=== PATIENT | male | born 1980 | race Caucasian/White ===

== ENCOUNTER 2018-09-10 00:40 | Emergency (ER) | payer SELFPAY ==
[~2018-09-10] VITALS: Ht 167.6 cm; Wt 65.8 kg
[2018-09-10 00:54] VITALS: BP 122/78
--- NOTE | 2018-09-10 00:56 | NUR ---
PT AMBULATED TO LOBBY WITH VSS.
--- NOTE | 2018-09-10 03:07 | NUR ---
PT BIB SELF C/O RIGHT HAND PAIN. PT STATES THAT HE WOKE UP TO HIS HAND BEING SWOLLEN AND RED THIS MORNING. DENIES TRAUMA OR INJURY. 7/10 BURNING PAIN AT THIS TIME. --MODERATE SWELLING AND REDNESS NOTED, NO DISCHARGE OR VISUAL DEFORMITIES, ACTIVE ROM, RADIAL PULSES +3 EQUAL BL. CAP REFIL <3. --DENIES N/V/D; SKIN IS PINK/WARM/DRY; AAOX4 WITH EVEN AND STEADY GAIT; LUNGS CLEAR BL; HR EVEN AND REGULAR; PT DENIES ANY FEVER, CP, SOB, OR COUGH AT THIS TIME; VSS; PATIENT POSITIONED FOR COMFORT; HOB ELEVATED; BEDRAILS UP X1; BED DOWN. ER MD MADE AWARE OF PT STATUS. --PT STATES HE WAS LIVING IN A TRAILER W/FRIENDS, GOT KICKED OUT TODAY. PT STATES HE WOULD LIKE TO GO TO A RESIDENTIAL. PMH: DENIES RX: DENIES
[2018-09-10] MEDS ORDERED: CLINDAMYCIN 600 MG/4 ML VIAL IM ONE (04:15)
[2018-09-10] MEDS ORDERED: KETOROLAC 60 MG/2 ML VIAL IM ONE (04:15)
--- NOTE | 2018-09-10 04:59 | NUR ---
Patient discharged with v/s stable. Written and verbal after care instructions given and explained. Patient alert, oriented and verbalized understanding of instructions. Ambulatory with steady gait. All questions addressed prior to discharge. ID band removed. Patient advised to follow up with PMD. Rx of Motrin, and Bactrim given. Patient educated on indication of medication including possible reaction and side effects. Opportunity to ask questions provided and answered. Pt left with wheather appropriate clothing, homeless bag meal and bus pass provided.
[2018-09-10 05:13] VITALS: BP 118/73
== END 2018-09-10 04:59 | disposition home or self-care (01) ==
LOC: MED 00:40
DX: L03.113 Cellulitis of right upper limb (principal); Z88.1 Allergy status to other antibiotic agents
CPT/HCPCS: 73090; 96372; 99283; J1885; J3490; Q0092